=== PATIENT | male | born 1990 | race African-American/Black ===

== ENCOUNTER 2016-06-17 11:52 | Emergency (ER) | payer MEDICAID ==
[~2016-06-17] VITALS: Ht 170.2 cm; Wt 68.0 kg
[2016-06-17 12:30] VITALS: BP 146/95
[2016-06-17] MEDS ORDERED: PROAIR HFA8.5 GM INH (12:51)
[2016-06-17] MEDS ORDERED: ZITHROMAX250 MG ORAL (12:51)
[2016-06-17] MEDS ORDERED: PREDNISONE10 M2 PO (12:51)
[2016-06-17] MEDS ORDERED: ROBITUSSIN COU118 M4 PO (12:51)
[2016-06-17] MEDS ORDERED: FLONASE ALLERG9.9 ML NS (12:54)
[2016-06-17 13:00] VITALS: BP 146/95
--- NOTE | 2016-06-17 17:58 | Emergency Room Report ---
History of Present Illness General Chief Complaint: Upper Respiratory Illness Source: Patient Present Illness HPI The patient is a 26 old male presenting for subjective fevers, wheezing, and productive cough which began one week prior. The patient denies any sick contacts or recent travel. The patient describes sputum is green and yellow. The patient states that he has been diagnosed with pneumonia within the past year and this feels similar.The patient denies other symptoms including nausea, vomiting, chills, night sweats, neck pain or stiffness, chest pain, shortness of breath Allergies: Coded Allergies: No Known Allergies (Unverified , 06/17/16) Patient History Past Medical History: see triage record Pertinent Family History: none Reviewed Nursing Documentation: PMH: Agreed, PSxH: Agreed Nursing Documentation-PMH Past Medical History: No History, Except For Hx Asthma: Yes Review of Systems All Other Systems: negative except mentioned in HPI Physical Exam Vital Signs Date Time Temp Pulse Resp B/P Pulse Ox O2 Delivery O2 Flow Rate FiO2 06/17/16 12:04 98.8 80 22 146/95 99 Room Air Sp02 EP Interpretation: reviewed, normal General Appearance: no apparent distress, alert, GCS 15, non-toxic Head: normocephalic, atraumatic Eyes: bilateral eye PERRL, bilateral eye normal inspection ENT: hearing grossly normal, normal pharynx, no angioedema, normal voice Neck: full range of motion, supple/symm/no masses Respiratory: chest non-tender, no accessory muscle use, speaking full sentences , wheezing - diffuse Cardiovascular #1: regular rate, rhythm, no edema Genitourinary: normal inspection, no CVA tenderness Musculoskeletal: back normal, gait/station normal, normal range of motion, non- tender Psychiatric: judgement/insight normal, memory normal, mood/affect normal, no suicidal/homicidal ideation Skin: normal color, no rash, warm/dry, well hydrated Lymphatic: no adenopathy Medical Decision Making PA Attestation Dr. Rutherford is my supervising physician. Patient management was discussed with my supervising physician Diagnostic Impression: Primary Impression: Atypical pneumonia ER Course The patient is a 26 old male presenting for subjective fevers, wheezing, and productive cough which began one week prior. Differential diagnosis include but not limited to pharyngitis, sinusitis, AOM, bronchitis, PNA PE: afebrile. No tachypnea. No apparent distress. No TTP over maxillary or frontal sinuses. Lungs: diffuse wheezing. No accessory muscle use. No resp distress Heart: RRR, no abnormal heart sounds Ears: external auditory canal clear. Non erythematous. Bilat TM intact. Cone of light present bilat. No bulging of TM. No serous fluid seen. no nasal D/C Nor cervical lymphad No tonsillar exudate. Uvula midline.Oropharynx non erythematous The patient will be discharged home with a prescription for Azithromycin, cough medication, prednisone, and albuterol. ER precautions given and the patient will follow up with PMD Last Vital Signs Date Time Temp Pulse Resp B/P Pulse Ox O2 Delivery O2 Flow Rate FiO2 06/17/16 13:00 98.8 22 146/95 99 Room Air 06/17/16 12:30 80 Status: improved Disposition: HOME, SELF-CARE Condition: Improved Scripts Fluticasone Propionate (Flonase Allergy Relief) 9.9 Ml [place].susp 1 SPRAYS NS DAILY, #10 ML Prov: TERZIAN,CARIDAD P.A. 06/17/16 Prednisone (PREDNISONE) 10 Mg Tab.ds.pk 10 MG PO DAILY, #1 PACK Prov: TERZIAN,CARIDAD P.A. 06/17/16 Albuterol Sulfate* (PROAIR HFA*) 8.5 Gm Hfa.aer.ad 2 PUFFS INH Q6H, #8.5 GM 0 Refills Prov: TERZIAN,CARIDAD P.A. 06/17/16 Azithromycin* (ZITHROMAX*) 250 Mg Tablet 250 MG ORAL DAILY, #6 TAB 0 Refills Take two tables once daily for 1 day, then one tablet once daily for 4 days. Prov: TERZIAN,CARIDAD P.A. 06/17/16 Guaifenesin/Dextromethorphan (Robitussin Cough-Chest Dm Liq) 118 Ml Liquid 10 ML PO Q4HR, #118 ML Prov: TERZIAN,CARIDAD P.A. 06/17/16 Referrals: [facility],REFERRING (PCP) Patient Instructions: Cough, Adult Additional Instructions: I discussed my findings with the patient. All questions and concerns have been answered. Treatment and medication compliance have been addressed. I advised the patient that they need to follow up with PMD in 3-5 days. Return to ED if pain remains or worsens, cough worsens or remains, you notice blood in your sputum, you notice wheezing, you experience a fever, or if needed for any reason. Patient verbalized understanding of discharge instructions. CARIDAD PANDA Jun 17, 2016 17:58
== END 2016-06-17 13:00 | disposition home or self-care (01) ==
LOC: EMR 12:40
DX: J18.9 Pneumonia, unspecified organism (principal); J45.909 Unspecified asthma, uncomplicated
CPT/HCPCS: 99284

== ENCOUNTER 2019-01-05 15:36 | Emergency (ER) | payer MEDICAID ==
[~2019-01-05] VITALS: Ht 167.6 cm; Wt 78.0 kg
[~2019-01-05 15:36] MED LIST: FLONASE ALLERG9.9 ML NS; PREDNISONE10 M2 PO; PROAIR HFA8.5 GM INH; ROBITUSSIN COU118 M4 PO; ZITHROMAX250 MG ORAL
[2019-01-05] MEDS ORDERED: NKM (15:46)
[2019-01-05 15:57] VITALS: BP 139/98
--- NOTE | 2019-01-05 16:00 | NUR ---
ED Nurse Note: Patient presents with complaints of pain answelling at left scrotum.
--- NOTE | 2019-01-05 16:06 | NUR ---
ED Nurse Note: patient currently undergoing ultrasound.
[2019-01-05] MEDS ORDERED: Isovue-300 100ml vial INJ PRN (16:30)
--- NOTE | 2019-01-05 16:33 | NUR ---
ED Nurse Note: Ultrasound completed, blood lab drawn and urine collected and sent down to lab.
[2019-01-05 16:39] LABS: APPEARANCE,URINE CLEAR; BILIRUBIN, URINE NEGATIVE (NEGATIVE); EOSINOPHILS % (AUTO) 0.3 % (0.0-3.0); GLUCOSE, URINE (UA) NEGATIVE (NEGATIVE); HEMATOCRIT 46.8 % (42.0-52.0); HEMOGLOBIN 15.6 G/DL (14.2-18.0); KETONES,URINE NEGATIVE (NEGATIVE); LEUKOCYTE ESTERASE ,URINE NEGATIVE (NEGATIVE); LYMPHOCYTES % (AUTO) 11.7 % (20.0-45.0); MEAN CORPUSCULAR VOLUME 94 FL (80-99); MONOCYTES % (AUTO) 8.4 % (1.0-10.0); NEUTROPHILS % (AUTO) 78.6 % (45.0-75.0); NITRITE,URINE NEGATIVE (NEGATIVE); PH,URINE 8 (4.5-8.0); PLATELET COUNT 223 K/UL (150-450); PROTEIN,URINE NEGATIVE (NEGATIVE); RED BLOOD COUNT 4.96 M/UL (4.70-6.10); RED CELL DISTRIBUTION WIDTH 11.4 % (11.6-14.8); UROBILINOGEN,URINE 1 MG/DL (0.0-1.0); WHITE BLOOD COUNT 13.8 K/UL (4.8-10.8)
[2019-01-05 16:41] LABS: COLOR,URINE YELLOW
[2019-01-05 16:46] LABS: ANION GAP 8 mmol/L (5-15); BLOOD UREA NITROGEN 16 mg/dL (7-18); CALCIUM 9.2 MG/DL (8.5-10.1); CARBON DIOXIDE 28 MMOL/L (21-32); CHLORIDE 103 MMOL/L (98-107); POTASSIUM 3.8 MMOL/L (3.5-5.1); SODIUM 138 MMOL/L (136-145)
[2019-01-05 16:51] LABS: ALANINE AMINOTRANSFERASE 197 U/L (12-78); ALBUMIN 4.3 G/DL (3.4-5.0); ALBUMIN/GLOBULIN RATIO 1.2 (1.0-2.7); ALKALINE PHOSPHATASE 46 U/L (46-116); ASPARTATE AMINO TRANSFERASE 52 U/L (15-37); BILIRUBIN,TOTAL 0.4 MG/DL (0.2-1.0)
--- NOTE | 2019-01-05 16:52 | Diagnostic Imaging Report ---
Indications: Reason For Exam: PAIN Technique: Grayscale and duplex images of the scrotum Comparison: none Findings:The right testicle measures 4.3cm in length. It demonstrates normal echogenicity. Normal Doppler flow. Normal epididymis. The left testicle measures 4.3 cm in length. It demonstrates normal echogenicity and normal Doppler flow. Normal epididymis. Impression: Negative
--- NOTE | 2019-01-05 17:34 | NUR ---
ED Nurse Note: Patient went over for CT of the pelvis.
--- NOTE | 2019-01-05 17:45 | NUR ---
ED Nurse Note: Patient returned from CT. Patient is resting comfortably with no one at bedside, Will continue to monitor.
--- NOTE | 2019-01-05 18:29 | Diagnostic Imaging Report ---
Clinical Indication: Abdominal and testicular pain Technique: No oral contrast utilized, per emergency room physician request IV administration nonionic contrast. Venous phase spiral acquisition obtained through the abdomen and pelvis. Multiplanar reconstructions were generated. Total dose length product 1398 mGycm. CTDIvol(s) 22 mGy. Dose reduction achieved using automated exposure control Comparison: none Findings: The appendix is normal. There is no evidence of diverticulosis or diverticulitis. No free or loculated intraperitoneal gas or fluid. No small bowel distention. Distal esophagus, stomach, duodenum are unremarkable. The liver, gallbladder, bile ducts, pancreas, spleen, adrenals, kidneys are unremarkable. No retroperitoneal or mesenteric mass or adenopathy. No pelvic mass or adenopathy. The included lung bases are clear. The bones are unremarkable. Impression: Negative This agrees with the preliminary interpretation provided overnight by [facility] teleradiology service. The CT scanner at [facility] is accredited by the [employer] and the scans are performed using protocols designed to limit radiation exposure to as low as reasonably achievable to attain images of sufficient resolution adequate for diagnostic evaluation.
--- NOTE | 2019-01-05 18:48 | Emergency Room Report ---
History of Present Illness General Chief Complaint: Male Urogenital Problems Source: Patient Present Illness HPI 28-year-old male with history of heavy alcohol intake 3 alcoholic beverages a day for the past 4 5 years here complaining of sudden onset of left-sided testicular pain that started as he was urinating today and immediately started feeling diaphoretic and nauseated. Patient denies passing out, chest pain, palpitation, head injury, and dizziness. Reports that he has had this kind of pain before however has never had a ultrasound done. Denies urinary symptoms. Patient denies being sexually active. Denies penile discharge. Rating the pain 5 out of 10 however reports that this time she does not have the pain. Also complains that the pain radiates to his abdomen both on right and left lower quadrant. Patient does not elicit any tenderness or no guarding noted on the abdomen. Denies tobacco smoking or drug use. Denies fever and chills, nausea vomiting. Denies chest pain, shortness of breath, palpitation, and other associated symptoms. Allergies: Coded Allergies: No Known Allergies (Unverified , 06/17/16) Patient History Past Medical History: see triage record Past Surgical History: unable to obtain Pertinent Family History: none Immunizations: UTD Reviewed Nursing Documentation: PMH: Agreed; PSxH: Agreed Nursing Documentation-PMH Past Medical History: No History, Except For Hx Asthma: Yes Review of Systems All Other Systems: negative except mentioned in HPI Physical Exam Vital Signs Date Time Temp Pulse Resp B/P (MAP) Pulse Ox O2 Delivery O2 Flow Rate FiO2 01/05/19 15:42 98.1 86 18 139/98 (112) 98 Room Air Sp02 EP Interpretation: reviewed, normal General Appearance: no apparent distress, alert, GCS 15, non-toxic Head: normocephalic, atraumatic Eyes: bilateral eye normal inspection, bilateral eye PERRL ENT: hearing grossly normal, normal pharynx, no angioedema, normal voice Neck: full range of motion, supple/symm/no masses Respiratory: chest non-tender, lungs clear, normal breath sounds, speaking full sentences Cardiovascular #1: regular rate, rhythm, no edema, no murmur Gastrointestinal: normal bowel sounds, non tender, soft, no mass, no organomegaly, no peritonitis, no bruit, non-distended Rectal: deferred Genitourinary: normal inspection, no CVA tenderness, no vertebral tenderness, scrotum normal Musculoskeletal: normal inspection, back normal, digits/nails normal, gait/ station normal Neurologic: alert, oriented x3, responsive, motor strength/tone normal, sensory intact, speech normal Psychiatric: judgement/insight normal, memory normal, mood/affect normal, no suicidal/homicidal ideation Skin: no rash Lymphatic: normal inspection Medical Decision Making PA Attestation All my diagnosis and treatment plans were reviewed ad discussed with my supervising physician Dr. Faye Diagnostic Impression: Primary Impression: Testicular pain Additional Impressions: Elevated liver enzymes Alcohol abuse Appendix disease ER Course 28-year-old male with history of heavy alcohol intake 3 alcoholic beverages a day for the past 4 5 years here complaining of sudden onset of left-sided testicular pain that started as he was urinating today and immediately started feeling diaphoretic and nauseated. Patient denies passing out, chest pain, palpitation, head injury, and dizziness. Reports that he has had this kind of pain before however has never had a ultrasound done. Denies urinary symptoms. Patient denies being sexually active. Denies penile discharge. Rating the pain 5 out of 10 however reports that this time she does not have the pain. Also complains that the pain radiates to his abdomen both on right and left lower quadrant. Patient does not elicit any tenderness or no guarding noted on the abdomen. Denies tobacco smoking or drug use. Denies fever and chills, nausea vomiting. Denies chest pain, shortness of breath, palpitation, and other associated symptoms. Ddx considered but are not limited to: appendicitis, cholecystis, gastritis, gastroenteritis, UTI, pyelonephritis, SBO, diverticulitis, influenza with GI manifestation, tinnitus versus testicular pain Vital signs: are WNL, pt. is afebrile H&PE are most consistent with: Pain,, alcohol abuse, appendix inflammation ORDERS: abdominal CT, abdominal pain set, scrotal ultrasound, ibuprofen, Keflex ED INTERVENTIONS: None required at this time. DISCHARGE: At this time pt. is stable for d/c to home. Will provide printed patient care instructions, and any necessary prescriptions. Care plan and follow up instructions have been discussed with the patient prior to discharge. I gave her a list of patients with patient and get help for alcohol abuse. Also advised patient to follow-up with primary care tomorrow regarding the elevated liver enzymes as well as 8 mm appendix with no signs of inflammatory disease, and I asked him to return to the emergency room with worsening symptoms. CT/MRI/US Diagnostic Results CT/MRI/US Diagnostic Results #1: Imaging Test Ordered: Scrotal ultrasound Impression Within normal limits CT/MRI/US Diagnostic Results #2: Imaging Test Ordered: Abdominal CT with contrast Impression CT ABDOMEN & PELVIS With Contrast: The lung bases are clear Abdominal solid organs, gallbladder and abdominal aorta appear within limits No bowel dilation or free air The appendix measures up to 8 mm without surrounding inflammatory change, clinically correlate No free fluid Bladder appears within limits Last Vital Signs Date Time Temp Pulse Resp B/P (MAP) Pulse Ox O2 Delivery O2 Flow Rate FiO2 01/05/19 15:57 98.1 85 18 139/98 98 Room Air Disposition: HOME, SELF-CARE Condition: Stable Scripts Ibuprofen* (MOTRIN*) 600 Mg Tablet 600 MG ORAL Q8H PRN for For Pain, #30 TAB 0 Refills Prov: Corine Rivera 01/05/19 Cephalexin* (KEFLEX*) 500 Mg Capsule 500 MG ORAL EVERY 6 HOURS for 7 Days, #28 CAP Prov: Corine Rivera 01/05/19 Referrals: [facility],REFERRING (PCP) Patient Instructions: Alcohol Abuse and Nutrition, Scrotal Swelling Additional Instructions: Follow-up with your primary care physician tomorrow post ER visit if any pain in the right side of abdomen, fever and chills, nausea vomiting return to the emergency room. Avoid drinking alcohol, take medication as directed Corine Rivera Jan 05, 2019 18:47
[2019-01-05] MEDS ORDERED: CEPHALEXIN500 MG ORAL (18:50)
[2019-01-05] MEDS ORDERED: IBUPROFEN600 MG ORAL (18:50)
--- NOTE | 2019-01-05 19:07 | NUR ---
ED Nurse Note: patient cleared for discharge, verbalized understanding of discharge instructions. ID band removed, IV removed. Patient is A&Ox4, ambulatory with steady gait. Patient departed with all belongings, accompanied by his mother and his sister.
[2019-01-05 19:18] VITALS: BP 139/98
== END 2019-01-05 19:18 | disposition home or self-care (01) ==
LOC: EMR 16:17
DX: N50.812 Left testicular pain (principal); R79.89 Other specified abnormal findings of blood chemistry; F10.10 Alcohol abuse, uncomplicated; K38.9 Disease of appendix, unspecified; J45.909 Unspecified asthma, uncomplicated
CPT/HCPCS: 36415; 74177; 76870; 80053; 81001; 85025; Q9967; Z7502; 99284